=== PATIENT | male | born 1975 | race African-American/Black ===

== ENCOUNTER 2019-04-11 07:36 | Day surgery (SDC) | payer OTHER ==
[~2019-04-11] VITALS: Ht 185.4 cm; Wt 113.4 kg
[~2019-04-11 07:36] MED LIST: ALLE180T33 PO; NS 1,000 ML IV ONE
[2019-04-11] MEDS ORDERED: PROPOFOL 500 MG/50 ML VIAL As Ordered ONE (09:08)
[2019-04-11] MEDS ORDERED: LIDOCAINE 2% INJ 100 MG/5 ML SDV (FOR ANES.) As Ordered ONE (09:08)
--- NOTE | 2019-04-11 09:39 | ROOR ---
Patient Name: Derek Chester Procedure Date: 04/11/2019 9:06 AM Date of : 1975 Age: 43 Room: [facility] Gender: Male Note Status: Finalized Procedure: Colonoscopy Indications: Screening for colon cancer: Family history of colon polyps in distant relative(s) 60 or older Providers: Brian Curtis MD Referring MD: MARTINA SUTHERLAND Requesting Provider: Medicines: Monitored Anesthesia Care Complications: No immediate complications. Procedure: Pre-Anesthesia Assessment: - Prior to the procedure, a History and Physical was performed, and patient medications and allergies were reviewed. The patient is competent. The risks and benefits of the procedure and the sedation options and risks were discussed with the patient. All questions were answered and informed consent was obtained. Patient identification and proposed procedure were verified by the physician, the nurse and the anesthesiologist in the endoscopy suite. Mental Status Examination: alert and oriented. Airway Examination: normal oropharyngeal airway and neck mobility. Respiratory Examination: clear to auscultation. CV Examination: normal. Prophylactic Antibiotics: The patient does not require prophylactic antibiotics. Prior Anticoagulants: The patient has taken no previous anticoagulant or antiplatelet agents. ASA Grade Assessment: II - A patient with mild systemic disease. After reviewing the risks and benefits, the patient was deemed in satisfactory condition to undergo the procedure. The anesthesia plan was to use monitored anesthesia care (MAC). Immediately prior to administration of medications, the patient was re-assessed for adequacy to receive sedatives. The heart rate, respiratory rate, oxygen saturations, blood pressure, adequacy of pulmonary ventilation, and response to care were monitored throughout the procedure. The physical status of the patient was re-assessed after the procedure. The Colonoscope was introduced through the anus and advanced to the cecum, identified by appendiceal orifice and ileocecal valve. The colonoscopy was performed without difficulty. The patient tolerated the procedure well. The quality of the bowel preparation was good. Findings: Skin tags were found on perianal exam. Scattered small-mouthed diverticula were found in the sigmoid colon, descending colon, transverse colon and hepatic flexure. There was no evidence of diverticular bleeding. A localized area of mildly congested mucosa was found in the descending colon. Biopsies were taken with a cold forceps for histology. Estimated blood loss was minimal. The retroflexed view of the distal rectum and anal verge was normal and showed no anal or rectal abnormalities. Impression: - Perianal skin tags found on perianal exam. - Mild diverticulosis in the sigmoid colon, in the descending colon, in the transverse colon and at the hepatic flexure. There was no evidence of diverticular bleeding. - Congested mucosa in the descending colon. Biopsied. - The distal rectum and anal verge are normal on retroflexion view. Recommendation: - Discharge patient to home (ambulatory). - High fiber diet indefinitely. - Await pathology results. - Repeat colonoscopy in 10 years for screening purposes. Brian Curtis MD Brian Curtis MD 04/11/2019 9:39:24 AM Electronically signed by Brian Curtis MD Number of Addenda: 0 Note Initiated On: 04/11/2019 9:06 AM Estimated Blood Loss: Estimated blood loss was minimal.
[2019-04-11 10:14] VITALS: BP 134/83
== END 2019-04-11 10:16 | disposition home or self-care (01) ==
LOC: M OPP 07:36
PROVIDERS: ATTEND Surgery
DX: Z12.11 Encounter for screening for malignant neoplasm of colon (principal); Z80.0 Family history of malignant neoplasm of digestive organs; Z83.71 Family history of colonic polyps; K63.89 Other specified diseases of intestine; K64.4 Residual hemorrhoidal skin tags; K57.30 Diverticulosis of large intestine without perforation or abscess without bleeding; Z91.018 Allergy to other foods; Z87.891 Personal history of nicotine dependence

== ENCOUNTER 2019-05-24 12:46 | Emergency (ER) | payer OTHER ==
[~2019-05-24] VITALS: Ht 190.5 cm; Wt 116.6 kg
[2019-05-24] MEDS ORDERED: ONDANSETRON 4MG/2ML VIAL (J2405) IV ONE (13:45)
[2019-05-24] MEDS ORDERED: MORPHINE 2 MG/ML 1ML VIAL (J2270) IV ONE (13:45)
[2019-05-24] MEDS ORDERED: NS 1,000 ML IV ONE (13:45)
[2019-05-24 13:59] LABS: BASO % 0.3 % (0.0-1.0); EOS # 0.1 10^3/uL (0.0-0.5); EOS % 0.8 % (0.0-3.0); HEMATOCRIT 45.7 % (42.0-52.0); HEMOGLOBIN 14.7 g/dl (13.5-17.5); LYMPH # 1.5 10^3/uL (1.5-5.0); LYMPH % 22.8 % (24.0-44.0); MEAN CORPUSCULAR HEMOGLOBIN 28.3 pg (27.0-33.0); MEAN CORPUSCULAR HGB CONC 32.2 g/dl (32.0-36.5); MEAN CORPUSCULAR VOLUME 87.9 fl (80.0-96.0); MONO # 0.5 10^3/uL (0.0-0.8); MONO % 7.2 % (0.0-5.0); NEUTROPHILS # 4.4 10^3/uL (1.5-8.5); NEUTROPHILS % 68.7 % (36.0-66.0); PLATELET COUNT, AUTOMATED 192 10^3/uL (150-450); WHITE BLOOD COUNT 6.4 10^3/uL (4.0-10.0)
[2019-05-24 14:26] LABS: ALBUMIN 4.4 GM/DL (3.2-5.2); BILIRUBIN,DIRECT 0.2 MG/DL (0.0-0.2); BILIRUBIN,TOTAL 0.4 MG/DL (0.2-1.0); TOTAL PROTEIN 7.9 GM/DL (6.4-8.2)
[2019-05-24] MEDS ORDERED: ISOVUE-370 76% 100ML VIAL (Q9967) As Ordered ONE (14:55)
--- NOTE | 2019-05-24 15:28 | REP ---
CT of the abdomen and pelvis with IV contrast, without bowel contrast: There are no comparisons. The studies performed for right lower quadrant abdominal pain. The visualized lung blair are unremarkable. The hepatic parenchyma, gallbladder, pancreas, spleen, adrenals, kidneys and abdominal aorta are unremarkable. There is no hydronephrosis or perinephric stranding. There is wall thickening of the descending colon and sigmoid colon. This is compatible with colitis in the appropriate clinical setting. There is no ascites or adenopathy. There is no bowel distension or obstruction. The mesentery is unremarkable. Pelvis: The appendix has a normal appearance. The bladder is unremarkable. There is no ascites or adenopathy. Impression: There is wall thickening of the descending colon and sigmoid colon. This is compatible with colitis in the appropriate clinical setting. The appendix has a normal appearance. The gallbladder is unremarkable. There are no renal or ureteral calculi. No hydronephrosis or perinephric stranding. Otherwise, negative CT of the abdomen and pelvis. Electronically Signed by Gurmeet Lopez MD 05/24/2019 03:20 P
[2019-05-24 16:12] VITALS: BP 160/87
== END 2019-05-24 16:18 | disposition home or self-care (01) ==
LOC: M ED 12:46
DX: K52.9 Noninfective gastroenteritis and colitis, unspecified (principal); Z91.018 Allergy to other foods
CPT/HCPCS: 74177; 80047; 80076; 81001; 81002; 83605; 83690; 85025; 87086; 87661; 96374; 96375; 99284; G0463; J2270; J2405; Q9967

== ENCOUNTER → 2019-05-24 | Outpatient (REF) | payer OTHER ==
[~2019-05-24] MED LIST changes: -NS 1,000 ML IV ONE
[2019-05-24 18:05] LABS: CHLAMYDIA DNA AMPLIFICATION NEGATIVE (NEGATIVE); GC DNA AMPLIFICATION NEGATIVE (NEGATIVE)
== END ==
LOC: M SFHCLERA 11:44
PROVIDERS: ATTEND Physician Assistant
DX: R82.90 Unspecified abnormal findings in urine (principal)

== ENCOUNTER → 2020-07-17 | Outpatient (CLI) | payer SELFPAY | LOC: M LABSMTC 12:45 | PROVIDERS: ATTEND Pediatrics | DX: Z20.828 Contact with and (suspected) exposure to other viral communicable diseases (principal) ==

== ENCOUNTER → 2020-09-09 | Outpatient (CLI) | payer SELFPAY | LOC: M LABSMTC 12:23 | PROVIDERS: ATTEND Pediatrics | DX: Z20.822 Contact with and (suspected) exposure to COVID-19 (principal) ==

== ENCOUNTER → 2021-09-05 | Outpatient (REF) | LOC: M LABSMTC 09:14 | PROVIDERS: ATTEND Pediatrics | DX: Z11.52 Encounter for screening for COVID-19 (principal) ==

== ENCOUNTER → 2022-04-15 | Outpatient (CLI) | payer OTHER | LOC: M LABSMTC 09:55 | PROVIDERS: ATTEND Anesthesiology | DX: Z01.818 Encounter for other preprocedural examination (principal); Z11.52 Encounter for screening for COVID-19 ==

== ENCOUNTER 2022-04-20 12:40 | Day surgery (SDC) | payer OTHER ==
[~2022-04-20] VITALS: Ht 190.5 cm; Wt 114.3 kg
[~2022-04-20 12:40] MED LIST changes: +LIDOCAINE 2% 100MG/5ML SDV (FOR ANES.) As Ordered ONE; +NS 1,000 ML IV ONE; +propofoL 200 MG/20 ML VIAL As Ordered ONE
[2022-04-20] MEDS ORDERED: propofoL 200 MG/20 ML VIAL As Ordered ONE (15:13)
[2022-04-20 16:11] VITALS: BP 151/89
== END 2022-04-20 16:13 | disposition home or self-care (01) ==
LOC: M OPP 12:40
PROVIDERS: ATTEND Surgery
DX: Z12.11 Encounter for screening for malignant neoplasm of colon (principal); Z80.0 Family history of malignant neoplasm of digestive organs; K57.30 Diverticulosis of large intestine without perforation or abscess without bleeding; F32.9 Major depressive disorder, single episode, unspecified; F41.9 Anxiety disorder, unspecified; G47.33 Obstructive sleep apnea (adult) (pediatric); Z99.89 Dependence on other enabling machines and devices; Z79.899 Other long term (current) drug therapy; Z91.018 Allergy to other foods; Z87.891 Personal history of nicotine dependence